=== PATIENT | female | born 1940 ===

== ENCOUNTER 2020-02-05 08:59 | Inpatient (IN) ==
[~2020-02-05 08:59] MED LIST: Buffered Lidocaine 1% SYRIN 1 ml INTRADERM ONE; Dexamethasone IV 4 MG/ML VIAL 1 ml VIAL IV SLOW PU ONE; Lactated Ringers 1000 ml BAG 1,000 ML IV SCH
[2020-02-05] MEDS ORDERED: fentaNYL 250 mcg/5 ml 50 MCG/ML 5 ml VIAL (250 MCG) ONE (09:09)
[2020-02-05] MEDS ORDERED: Midazolam 2 mg/2 ml VIAL 1 mg/ml 2 ml VIAL (2 mg) ONE (09:10)
[2020-02-05] MEDS ORDERED: Remifentanil 2 MG VIAL ONE ×2 (09:10→14:07)
[2020-02-05] MEDS ORDERED: Rocuronium 50 mg VIAL 10 mg/ml 5 ml VIAL (50 mg) ONE (09:10)
[2020-02-05] MEDS ORDERED: Propofol 10 MG/ML 20 ML BTL ONE (09:10)
[2020-02-05] MEDS ORDERED: Dexamethasone IV 4 MG/ML VIAL 1 ml VIAL ONE ×2 (09:33→09:35)
[2020-02-05] MEDS ORDERED: Buffered Lidocaine 1% SYRIN 1 ml INTRADERM ONE (09:35)
[2020-02-05] MEDS ORDERED: ceFAZolin 2 GM PREMIX 2 GM/50 ML BAG ONE (09:35)
[2020-02-05] MEDS ORDERED: Lidocaine 1% w EPI 1:200,000 SDV 30 ML VIAL ONE (11:22)
[2020-02-05] MEDS ORDERED: Artificial Tear OPHTH.OINT 3.5 GM ONE (11:22)
[2020-02-05] MEDS ORDERED: Bacitracin OINTMENT TUBE ONE (11:23)
[2020-02-05] MEDS ORDERED: ceFAZolin 1 GM ADVAN 1 GM ADDV.VIAL IVPB ONE (11:23)
[2020-02-05] MEDS ORDERED: Bacitracin INJECTION 50,000 UNITS ONE (11:23)
[2020-02-05] MEDS ORDERED: Vancomycin 1,000 MG VIAL ONE (11:23)
[2020-02-05] MEDS ORDERED: Bupivacaine 0.25% SDV 30 ML ONE (11:23)
[2020-02-05] MEDS ORDERED: Naloxone 0.4 mg VIAL 0.4 mg/ml 1 ml VIAL IV PRN (12:53)
[2020-02-05] MEDS ORDERED: Ondansetron 4 mg VIAL 2 MG/ML 2 ml VIAL IV PRN (12:53)
[2020-02-05] MEDS ORDERED: fentaNYL 100 mcg/2 ml 50 MCG/ML VIAL IV PRN (12:53)
[2020-02-05] MEDS ORDERED: Propofol 10 mg/ml 100 ML BTL 200 ML ONE (13:22)
[2020-02-05] MEDS ORDERED: Ondansetron 4 mg VIAL 2 MG/ML 2 ml VIAL ONE (15:13)
[2020-02-05] MEDS ORDERED: Magnesium Hydroxide LIQ 30 ML UDC PO PRN (15:33)
[2020-02-05] MEDS ORDERED: HYDROmorphone 1 MG/1 ML SYRINGE ONE ×2 (15:46→15:49)
[2020-02-05] MEDS: HYDROmorphone 1 MG/1 ML SYRINGE IV PRN ×5 (15:50→16:10)
[2020-02-05] MEDS ORDERED: Albuterol 2.5mg/3 ml (0.083%) NEB.SOLN INH PRN (16:07)
[2020-02-05] MEDS ORDERED: fentaNYL 100 mcg/2 ml 50 MCG/ML VIAL ONE (16:19)
[2020-02-05] MEDS ORDERED: Dextrose 50% Syringe 50 ml 25 GM/50 ML SYRINGE IV PUSH PRN (16:23)
[2020-02-05] MEDS: NS 0.9% 1000 ml BAG 1,000 ML IV SCH (17:43)
[2020-02-05 18:57] LABS: ABS Basophils 0.1 10^3/ul (0-0.2); ABS Eosinophils 0.1 10^3/ul (0-0.6); ABS Lymphocytes 2.5 10^3/ul (1.0-4.8); ABS Monocytes 0.9 10^3/ul (0-0.8); ABS Neutrophils 10.6 10^3/ul (1.5-7.7); Eosinophil % 0.5 %; Hematocrit 38 % (35-47); Hemoglobin 12.8 g/dL (12.0-16.0); Lymphocyte % 17.8 %; Mean Corpuscular HGB Conc 34 g/dL (31-36); Mean Corpuscular Hemoglobin 31 pg (27-31); Mean Corpuscular Volume 92 fL (80-97); Platelet Count 201 10^3/uL (150-450); Red Blood Count 4.11 10^6 /uL (3.70-4.87); Red Cell Distribution Width 14 % (10-15); White Blood Count 14.3 10^3/uL (3.5-10.8)
[2020-02-05] MEDS: Enoxaparin 30 MG/0.3 ML SYR SUBCUT SCH (19:04)
[2020-02-05 19:16] LABS: BUN/Creatinine Ratio 45.1 (8-20); Calcium 8.6 mg/dL (8.6-10.3); EGFR African American 72.3 (>60); EGFR Non-African American 59.8 (>60); Potassium 3.6 mmol/L (3.5-5.0)
[2020-02-05] MEDS: ceFAZolin 2 GM PREMIX 2 GM/50 ML BAG IVPB SCH (20:23)
[2020-02-05] MEDS ORDERED: INSULIN DETEMIR SUBCUT SCH (21:00)
[2020-02-05] MEDS ORDERED: ALPHAGAN P 0.1% BOTH EYES SCH (21:00)
[2020-02-05] MEDS: BRIMONIDINE BOTH EYES SCH (21:31)
[2020-02-05] MEDS: Insulin GLARGINE 100 un/ml 10 ml VIAL SUBCUT SCH (21:34)
[2020-02-05] MEDS: Ondansetron 4 mg VIAL 2 MG/ML 2 ml VIAL IV PRN (21:49)
[2020-02-05] MEDS: Acetaminophen IV 1 GM/100ML 100 ML IVPB SCH (21:50)
[2020-02-06] MEDS: ceFAZolin 2 GM PREMIX 2 GM/50 ML BAG IVPB SCH ×3 (04:23→20:26)
[2020-02-06] MEDS: NS 0.9% 1000 ml BAG 1,000 ML IV SCH ×2 (04:23→16:43)
[2020-02-06] MEDS: Acetaminophen IV 1 GM/100ML 100 ML IVPB SCH (05:41)
[2020-02-06] MEDS: Ondansetron 4 mg VIAL 2 MG/ML 2 ml VIAL IV PRN ×2 (05:44→11:36)
[2020-02-06] MEDS ORDERED: CHLORTHALIDONE 25 MG PO SCH (09:00)
[2020-02-06] MEDS: Polyethylene Glycol 3350 17 GM PACKET PO SCH ×2 (09:07→10:21)
[2020-02-06] MEDS: Insulin GLARGINE 100 un/ml 10 ml VIAL SUBCUT SCH ×2 (09:07→21:25)
[2020-02-06] MEDS: Latanoprost 0.005% 2.5 ml BTL BOTH EYES SCH (09:08)
[2020-02-06] MEDS: BRIMONIDINE BOTH EYES SCH ×2 (09:58→21:12)
[2020-02-06] MEDS: Enoxaparin 30 MG/0.3 ML SYR SUBCUT SCH (18:36)
[2020-02-06 19:21] LABS: ABS Basophils 0.1 10^3/ul (0-0.2); ABS Eosinophils 0.2 10^3/ul (0-0.6); ABS Lymphocytes 3.1 10^3/ul (1.0-4.8); ABS Monocytes 1.1 10^3/ul (0-0.8); ABS Neutrophils 7.5 10^3/ul (1.5-7.7); Eosinophil % 1.6 %; Hematocrit 37 % (35-47); Hemoglobin 12.3 g/dL (12.0-16.0); Mean Corpuscular HGB Conc 33 g/dL (31-36); Mean Corpuscular Hemoglobin 31 pg (27-31); Mean Corpuscular Volume 93 fL (80-97); Mean Platelet Volume 11.7 fL (7.4-10.4); Platelet Count 193 10^3/uL (150-450); Red Blood Count 3.97 10^6 /uL (3.70-4.87); Red Cell Distribution Width 14 % (10-15); White Blood Count 11.9 10^3/uL (3.5-10.8)
[2020-02-07] MEDS: ceFAZolin 2 GM PREMIX 2 GM/50 ML BAG IVPB SCH ×3 (04:36→19:50)
[2020-02-07 06:11] LABS: Hematocrit 35 % (35-47); Hemoglobin 11.4 g/dL (12.0-16.0); Mean Corpuscular HGB Conc 33 g/dL (31-36); Mean Corpuscular Hemoglobin 31 pg (27-31); Mean Corpuscular Volume 94 fL (80-97); Mean Platelet Volume 12.2 fL (7.4-10.4); Platelet Count 168 10^3/uL (150-450); Red Cell Distribution Width 14 % (10-15)
[2020-02-07 06:26] LABS: BUN/Creatinine Ratio 27.1 (8-20); Calcium 7.6 mg/dL (8.6-10.3); EGFR Non-African American 49.6 (>60); Potassium 3.3 mmol/L (3.5-5.0)
[2020-02-07 06:49] LABS: ABS Basophils 0.1 10^3/ul (0-0.2); ABS Eosinophils 0.2 10^3/ul (0-0.6); ABS Lymphocytes 2.6 10^3/ul (1.0-4.8); ABS Monocytes 0.9 10^3/ul (0-0.8); ABS Neutrophils 6.2 10^3/ul (1.5-7.7); Eosinophil % 2.4 %; Lymphocyte % 26.2 %
[2020-02-07] MEDS ORDERED: Calcium Gluconate 2 GM in NS 0.9% 100 ml BAG 100 ML IV ONE (08:00)
[2020-02-07] MEDS: Latanoprost 0.005% 2.5 ml BTL BOTH EYES SCH (09:25)
[2020-02-07] MEDS: Potassium Chlor 20 meq TAB.ER PO SCH ×2 (09:26→22:12)
[2020-02-07] MEDS: Insulin GLARGINE 100 un/ml 10 ml VIAL SUBCUT SCH ×2 (09:27→22:11)
[2020-02-07] MEDS: Polyethylene Glycol 3350 17 GM PACKET PO SCH ×2 (09:28→09:30)
[2020-02-07] MEDS: BRIMONIDINE BOTH EYES SCH ×2 (09:29→22:15)
[2020-02-07] MEDS ORDERED: NS 0.9% 100 ml BAG 100 ML ONE (09:34)
[2020-02-07] MEDS: Enoxaparin 30 MG/0.3 ML SYR SUBCUT SCH (18:07)
[2020-02-07 22:41] LABS: ABS Basophils 0.1 10^3/ul (0-0.2); ABS Eosinophils 0.3 10^3/ul (0-0.6); ABS Lymphocytes 3.3 10^3/ul (1.0-4.8); ABS Monocytes 1.1 10^3/ul (0-0.8); ABS Neutrophils 6.9 10^3/ul (1.5-7.7); Eosinophil % 2.9 %; Hematocrit 36 % (35-47); Lymphocyte % 28.2 %; Mean Corpuscular HGB Conc 33 g/dL (31-36); Mean Corpuscular Hemoglobin 31 pg (27-31); Mean Corpuscular Volume 93 fL (80-97); Mean Platelet Volume 13.2 fL (7.4-10.4); Platelet Count 181 10^3/uL (150-450); Red Blood Count 3.85 10^6 /uL (3.70-4.87); Red Cell Distribution Width 14 % (10-15); White Blood Count 11.8 10^3/uL (3.5-10.8)
[2020-02-08] MEDS: ceFAZolin 2 GM PREMIX 2 GM/50 ML BAG IVPB SCH (03:25)
[2020-02-08 05:48] LABS: BUN/Creatinine Ratio 26.8 (8-20); Calcium 8.1 mg/dL (8.6-10.3); EGFR African American 67.2 (>60); EGFR Non-African American 55.5 (>60); Potassium 3.9 mmol/L (3.5-5.0)
[2020-02-08 08:48] VITALS: BP 119/45
[2020-02-08] MEDS: BRIMONIDINE BOTH EYES SCH (09:18)
[2020-02-08] MEDS: Latanoprost 0.005% 2.5 ml BTL BOTH EYES SCH (09:19)
[2020-02-08] MEDS: Polyethylene Glycol 3350 17 GM PACKET PO SCH (09:22)
[2020-02-08] MEDS: Insulin GLARGINE 100 un/ml 10 ml VIAL SUBCUT SCH (09:22)
[2020-02-08] MEDS: Potassium Chlor 20 meq TAB.ER PO SCH (09:23)
== END 2020-02-08 11:30 | disposition home health service (06) | DRG 517 ==
LOC: AA 08:59 → SSU 15:33
PROVIDERS: ADMIT Neurological Surgery; ATTEND Neurological Surgery